=== PATIENT | female | born 1990 | race Caucasian/White ===

== ENCOUNTER → 2017-03-04 | Outpatient (CLI) | payer BC, OTHER ==
[2015-02-03 10:50] VITALS: BP 132/79
[~2017-03-04] MED LIST: CLIN300C8 PO; METH4TAB6 PO; OXYC-323 PO
--- NOTE | 2017-03-04 16:55 | KCIC ---
Pelvic ultrasound HISTORY: Left lower quadrant pain. Polycystic ovary disease. Transabdominal scan Poor visualization of uterus and adnexa. Transvaginal scan Left ovary measures 4.6 cm long [place] with small follicular cysts and positive vascularity. Complex nodule identified within the left ovary measuring 2 cm with hypervascularity. Uterus measures 5.9 cm long by 3.8 cm length by 4.1 cm transverse. Endometrial stripe measures 13 mm. Right ovary measures 4.1 cm with multiple follicular cysts and positive vascularity. No significant free pelvic fluid. IMPRESSION: 1. Small follicular cysts identified in both ovaries, could relate to the diagnosis of polycystic ovary disease. 2. Complex 2 cm vascular nodule within the left ovary could represent a hemorrhagic cyst. Recommend short-term ultrasound follow-up in 2-6 weeks. Electronically signed by: Min Almaraz MD (03/04/2017 4:51 PM)
== END | disposition home or self-care (01) ==
LOC: KCIC US 14:39
DX: R10.32 Left lower quadrant pain (principal)
CPT/HCPCS: 76830; 76856

== ENCOUNTER → 2017-05-02 | Outpatient (CLI) | payer OTHER ==
[2015-02-03 10:50] VITALS: BP 132/79
[~2017-05-02] MED LIST changes: +IOHEXOL 240 MG/ML 50ML VIAL. PO ONE
--- NOTE | 2017-05-02 13:11 | RAD ---
CT abdomen/pelvis Indication: Status post lap band removal. Evaluate stomach. Technique: CT abdomen/pelvis with 30 mL of Omnipaque 240 P.O contrast with multiplanar reformats. No IV contrast. Comparison: None Findings: Heart is normal in size. No pericardial or pleural effusion. Clear lung bases. Noncontrast appearance of the liver, spleen, the liver, pancreas, adrenals and kidneys is within normal limits. No retroperitoneal or pelvic adenopathy. No bowel obstruction. Stomach is opacified with enteric contrast. Small bowel loops are also opacified with enteric contrast and show no abnormality. Appendix is within normal limits. Uterus is present and is anteverted. Bilateral ovaries are seen. Bladder within normal limits. No suspicious bony lesions. Impression: No evidence of gastric outlet obstruction or small bowel obstruction. No hiatal hernia. PQRS Compliance Statement: One or more of the following individualized dose reduction techniques were utilized for this examination: 1. Automated exposure control 2. Adjustment of the mA and/or kV according to patient size 3. Use of iterative reconstruction technique
== END | disposition home or self-care (01) ==
LOC: CT 15:30
PROVIDERS: ATTEND Surgery
DX: L90.5 Scar conditions and fibrosis of skin (principal); Z98.84 Bariatric surgery status
CPT/HCPCS: 74176; Q9966

== ENCOUNTER → 2017-05-10 | Outpatient (CLI) | payer OTHER ==
[2015-02-03 10:50] VITALS: BP 132/79
[~2017-05-10] MED LIST changes: -IOHEXOL 240 MG/ML 50ML VIAL. PO ONE
[2017-05-10 11:29] LABS: BASO # 0.1 x10^3/uL (0.0-0.2); BASO % 1 % (0-3); EOS % 3 % (0-3); HEMATOCRIT 36.2 % (36.0-47.0); HEMOGLOBIN 12.1 g/dL (12.0-15.5); LYMPH # 3.4 x10^3/uL (1.0-4.8); LYMPH % 38 % (24-48); MEAN CORPUSCULAR HEMOGLOBIN 29 pg (25-35); MEAN CORPUSCULAR HGB CONC 33 g/dL (31-37); MEAN CORPUSCULAR VOLUME 86 fL (79-100); MONO % 5 % (0-9); NEUT % 54 % (31-73); PLATELET COUNT 297 x10^3/uL (140-400); RED BLOOD COUNT 4.19 x10^6/uL (3.50-5.40); RED CELL DISTRIBUTION WIDTH 13.8 % (11.5-14.5)
--- NOTE | 2017-05-10 11:34 | EKG ---
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
== END | disposition home or self-care (01) ==
LOC: LAB 11:02
PROVIDERS: ATTEND Surgery
DX: R94.31 Abnormal electrocardiogram [ECG] [EKG] (principal)
CPT/HCPCS: 36415; 85025; 93005

== ENCOUNTER → 2017-05-15 | Outpatient (CLI) | payer OTHER ==
[2015-02-03 10:50] VITALS: BP 132/79
--- NOTE | 2017-05-15 09:15 | EKG ---
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
== END | disposition home or self-care (01) ==
LOC: EKG 08:49
PROVIDERS: ATTEND Physician Assistant Medical
DX: Z01.818 Encounter for other preprocedural examination (principal)
CPT/HCPCS: 93005

== ENCOUNTER 2018-03-04 07:00 | Emergency (ER) | payer OTHER ==
[2018-03-04 07:21] LABS: URINE HCG POC HCG NEGATIVE (Negative)
[2018-03-04 07:32] LABS: ADD MAN DIFF? NO
[2018-03-04] MEDS: IV NORMAL SALINE 1000ML BAG 1,000 ML IV (07:39)
[2018-03-04 07:49] LABS: ANION GAP 8 (6-14); BLOOD UREA NITROGEN 16 mg/dL (7-20); CALCIUM 8.8 mg/dL (8.5-10.1); CARBON DIOXIDE 26 mmol/L (21-32); CHLORIDE 104 mmol/L (98-107); CREATININE 0.7 mg/dL (0.6-1.0); GFR 98.9; GLUCOSE 100 mg/dL (70-99); POTASSIUM 4.2 mmol/L (3.5-5.1); SODIUM 138 mmol/L (136-145)
[2018-03-04 07:53] LABS: BASO # 0.1 x10^3/uL (0.0-0.2); BASO % 1 % (0-3); EOS # 0.4 x10^3/uL (0.0-0.7); EOS % 5 % (0-3); HEMATOCRIT 37.4 % (36.0-47.0); HEMOGLOBIN 12.6 g/dL (12.0-15.5); LYMPH # 2.8 x10^3/uL (1.0-4.8); LYMPH % 34 % (24-48); MEAN CORPUSCULAR HEMOGLOBIN 29 pg (25-35); MEAN CORPUSCULAR HGB CONC 34 g/dL (31-37); MEAN CORPUSCULAR VOLUME 86 fL (79-100); MONO # 0.4 x10^3/uL (0.0-1.1); MONO % 5 % (0-9); NEUT # 4.5 x10^3uL (1.8-7.7); NEUT % 55 % (31-73); PLATELET COUNT 309 x10^3/uL (140-400); RED BLOOD COUNT 4.37 x10^6/uL (3.50-5.40); RED CELL DISTRIBUTION WIDTH 13.8 % (11.5-14.5); WHITE BLOOD COUNT 8.1 x10^3/uL (4.0-11.0)
[2018-03-04 08:00] LABS: TROPONINI < 0.017 ng/mL (0.000-0.055)
[2018-03-04 08:13] LABS: NEG OBC SER NEG; POS OBC SER POS; PREG TEST PT QUAL NEGATIVE (NEG)
[2018-03-04 08:19] LABS: THYROID STIM HORMONE (TSH) 2.675 uIU/mL (0.358-3.74)
== END 2018-03-04 09:29 | disposition home or self-care (01) ==
LOC: ER 07:00
DX: R55 Syncope and collapse (principal); Z88.1 Allergy status to other antibiotic agents; Z88.2 Allergy status to sulfonamides; Z88.8 Allergy status to other drugs, medicaments and biological substances
CPT/HCPCS: 36415; 80048; 81025; 83735; 84100; 84439; 84443; 84484; 84703; 85025; 93005; 96360; 99285-25; J7030

== ENCOUNTER → 2018-03-11 | Outpatient (CLI) | payer OTHER | END | disposition home or self-care (01) | LOC: EKG 12:45 | DX: R55 Syncope and collapse (principal) | CPT/HCPCS: 93660 ==

== ENCOUNTER → 2018-03-14 | Outpatient (CLI) | payer OTHER | END | disposition home or self-care (01) | LOC: ECHO 07:48 | DX: I36.1 Nonrheumatic tricuspid (valve) insufficiency (principal); R55 Syncope and collapse | CPT/HCPCS: 70450; 93306 ==

== ENCOUNTER → 2019-05-19 | Outpatient (CLI) | payer OTHER ==
[2018-03-04 09:00] VITALS: BP 129/75
[~2019-05-19] MED LIST changes: -OXYC-323 PO; +OXYC1TAB15 PO
[2019-05-19 11:36] LABS: BASO % 1 % (0-3); EOS # 0.1 x10^3/uL (0.0-0.7); EOS % 1 % (0-3); HEMATOCRIT 33.2 % (36.0-47.0); HEMOGLOBIN 11.1 g/dL (12.0-15.5); LYMPH # 2.7 x10^3/uL (1.0-4.8); LYMPH % 42 % (24-48); MEAN CORPUSCULAR HEMOGLOBIN 28 pg (25-35); MEAN CORPUSCULAR HGB CONC 33 g/dL (31-37); MEAN CORPUSCULAR VOLUME 84 fL (79-100); MONO # 0.3 x10^3/uL (0.0-1.1); MONO % 5 % (0-9); NEUT # 3.3 x10^3/uL (1.8-7.7); NEUT % 52 % (31-73); PLATELET COUNT 320 x10^3/uL (140-400); RED BLOOD COUNT 3.96 x10^6/uL (3.50-5.40); RED CELL DISTRIBUTION WIDTH 14.5 % (11.5-14.5); WHITE BLOOD COUNT 6.4 x10^3/uL (4.0-11.0)
[2019-05-19 12:15] LABS: ALBUMIN 3.3 g/dL (3.4-5.0); ALBUMIN/GLOBULIN RATIO 0.9 (1.0-1.7); CALCIUM 8.6 mg/dL (8.5-10.1); CHOLESTEROL/HDL RATIO 3.3; CREATININE 0.7 mg/dL (0.6-1.0); GFR 97.6; MAGNESIUM 1.8 mg/dL (1.8-2.4); POTASSIUM 4.1 mmol/L (3.5-5.1); TOTAL BILIRUBIN 0.4 mg/dL (0.2-1.0); TOTAL PROTEIN 6.9 g/dL (6.4-8.2)
[2019-05-20 01:07] LABS: HEMOGLOBIN A1C 5.5 % (4.8-5.6)
== END | disposition home or self-care (01) ==
LOC: LAB 11:03
PROVIDERS: ATTEND Family Medicine
DX: Z00.00 Encounter for general adult medical examination without abnormal findings (principal); Z98.890 Other specified postprocedural states
CPT/HCPCS: 36415; 80053; 80061; 82306; 82607; 82728; 83036; 83735; 84443; 85025

== ENCOUNTER 2019-08-05 11:06 | Emergency (ER) | payer OTHER ==
[~2019-08-05] VITALS: Ht 162.6 cm; Wt 105.2 kg
[2019-08-05 11:15] VITALS: BP 146/97
[2019-08-05] MEDS ORDERED: HYDROcodone/APAP 5/325MG 1 TAB TABLET PO ONE (11:30)
--- NOTE | 2019-08-05 12:29 | RAD ---
Study: FOOT LEFT 3V Indication: Fourth toe pain. Trauma. Comparison: None. Findings: Obliquely oriented, mildly comminuted and displaced fracture through the base of the fourth toe proximal phalanx which exhibits intra-articular extension into the MTP joint. This is best appreciated on the small field of view radiograph centered on the distal forefoot. Plantar angulation across the fracture site as well as lateral deviation of the distal aspect of the toe relative to the base of the proximal phalanx. No acute fracture seen elsewhere. Achilles insertion enthesophyte and a plantar calcaneal spur. Impression: Mildly comminuted and displaced, intra-articular fracture at the base of the fourth toe proximal phalanx extending into the MTP joint. Lateral subluxation of the distal aspect of the fourth toe relative to the base of the proximal phalanx as well as plantar angulation across the fracture site. Electronically signed by: EDGARD DAVIES MD (08/05/2019 12:26 PM) [facility]
--- NOTE | 2019-08-05 12:43 | PHYS DOC ---
Past Medical History Past Medical History: Endometriosis Additional Past Medical Histor: Hx Syncope, PCOS, ADD (VIRGIE MORFIN APRN) Past Surgical History: Other Additional Past Surgical Histo: Gastric sleeve, lap band (VIRGIE MORFIN APRN) Alcohol Use: Occasionally Drug Use: None (VIRGIE MORFIN APRN) Adult General Chief Complaint Chief Complaint: FOOT INJURY PAIN HPI HPI Patient is a 29 year old male who presents to the emergency department with complaints of left fourth toe pain and deformity after tripping over her dog this morning. Patient reports that when she tripped over her dog her foot became wedged into one of the steps on her deck. Patient currently rates her pain a 8 out of 10 on the pain scale, the pain increases with weightbearing and movement. She denies any alleviating factors. Pt denies any numbness or tingling of her left foot. She denies any left ankle pain or pain in her foot. All other ROS is neg unless otherwise noted in HPI. (VIRGIE MORFIN APRN) Review of Systems Review of Systems See Above (VIRGIE MORFIN APRN) Current Medications Current Medications Current Medications Medications (Trade) Dose Ordered Sig/Domenico Start Time Stop Time Status Last Admin Dose Admin Acetaminophen/ Hydrocodone Bitart (Lortab 5/325) 1 tab 1X ONCE 08/05/19 11:30 08/05/19 11:31 DC 08/05/19 11:33 1 TAB (HEATHER POWERS MD) Allergies Allergies Allergies Coded Allergies Type Severity Reaction Last Updated Verified Sulfa (Sulfonamide Antibiotics) Allergy Intermediate Rash 08/05/19 Yes amoxicillin Allergy Intermediate Rash 08/05/19 Yes nickel Allergy Intermediate Rash 08/05/19 Yes Uncoded Allergies Type Severity Reaction Last Updated Verified dermabond Allergy Intermediate rash 08/05/19 (HEATHER POWERS MD) Physical Exam Physical Exam See Above Constitutional: Well developed, well nourished, no acute distress, non-toxic appearance. [] HENT: Normocephalic, atraumatic, bilateral external ears normal, nose normal. [] Eyes: PERRLA, EOMI, conjunctiva normal, no discharge. [] Neck: Normal range of motion, no stridor. [] Cardiovascular:Heart rate regular rhythm Lungs & Thorax: Respirations even and unlabored, no retractions, no respiratory distress Skin: Warm, dry, no erythema, no rash. [] Extremities: No cyanosis, no clubbing, no edema; L 4th toe deformity with tenderness to palpation. Neurologic: Alert and oriented X 3, no focal deficits noted. [] Psychologic: Affect normal, judgement normal, mood normal. [] (VIRGIE MORFIN APRN) Current Patient Data Vital Signs Vital Signs Date Time Temp Pulse Resp B/P (MAP) Pulse Ox O2 Delivery O2 Flow Rate FiO2 08/05/19 11:33 18 97 Room Air 08/05/19 11:15 98.9 84 146/97 (113) 98.9 (HEATHER POWERS MD) EKG EKG [] (VIRGIE MORFIN APRN) Radiology/Procedures Radiology/Procedures PROCEDURE: FOOT LEFT 3V Study: FOOT LEFT 3V Indication: Fourth toe pain. Trauma. Comparison: None. Findings: Obliquely oriented, mildly comminuted and displaced fracture through the base of the fourth toe proximal phalanx which exhibits intra-articular extension into the MTP joint. This is best appreciated on the small field of view radiograph centered on the distal forefoot. Plantar angulation across the fracture site as well as lateral deviation of the distal aspect of the toe relative to the base of the proximal phalanx. No acute fracture seen elsewhere. Achilles insertion enthesophyte and a plantar calcaneal spur. Impression: Mildly comminuted and displaced, intra-articular fracture at the base of the fourth toe proximal phalanx extending into the MTP joint. Lateral subluxation of the distal aspect of the fourth toe relative to the base of the proximal phalanx as well as plantar angulation across the fracture site. [] (VIRGIE MORFIN APRN) Course & Med Decision Making Course & Med Decision Making Pertinent Labs and Imaging studies reviewed. (See chart for details) 1214- Spoke with Dr. Leslie advised of fracture dislocation. Per Dr. Leslie reduce fracture then bing taped the third fourth and fifth left toes together and place patient in a postop shoe. Outpatient follow-up in his office next week. 1232- Dr. Powers and myself at bedside to reduce fracture, 3rd-5th toes on left foot bing taped with cotton balls placed between toes. [] (VIRGIE MORFIN APRN) Dragon Disclaimer Dragon Disclaimer This electronic medical record was generated, in whole or in part, using a voice recognition dictation system. (VIRGIE MORFIN APRN) Departure Departure Impression: Primary Impression: Fracture of fourth toe, left, closed Disposition: 01 HOME, SELF-CARE Condition: STABLE Referrals: NIDIA MELTON (PCP) KYE LESLIE II, MD Patient Instructions: Bing Taping of Toes, Toe Fracture, [id number] Additional Instructions: Fill prescription and take as directed for pain. Bing tape your toes and wear the post-op shoe provided. Follow up with Dr. Leslie next week, return to the ER if your symptoms worsen. Scripts Hydrocodone Bit/Acetaminophen (HYDROCODONE-APAP 5-325 ) 1 Tab Tablet 1 TAB PO PRN Q6HRS PRN for PAIN for 5 Days, #20 TAB 0 Refills Prov: VIRGIE MORFIN APRN 08/05/19 PROCEDURE Procedure Procedure note: We reapproximated the patient's fourth left toe fracture was reduced to a more anatomic position. Verbal consent was given. Normal neurovascular status before and after the procedure with 2 second cap refill. X- rays taken after the procedure. (HEATHER POWERS MD) Problem Qualifiers Primary Impression: Fracture of fourth toe, left, closed Encounter type: initial encounter Qualified Codes: S92.502A - Displaced unspecified fracture of left lesser toe(s), initial encounter for closed fracture VIRGIE MORFIN APRN Aug 05, 2019 12:43 HEATHER POWERS MD Aug 05, 2019 12:47
--- NOTE | 2019-08-05 13:04 | RAD ---
TOES LEFT History: Fourth toe post reduction Comparison: Exam earlier the same day Findings: 3 views of the left foot with attention to the fourth digit are submitted. There is somewhat oblique displaced fracture of the proximal aspect of the fourth proximal phalanx, distal fragment displaced by about one quarter shaft width in volar direction. Fracture plane likely extends to the articular surface. There is fusion of the fifth distal interphalangeal joint. Impression: 1. There is again displaced intra-articular fracture of the fourth proximal phalanx. Electronically signed by: Sorin Eli MD (08/05/2019 1:01 PM) [facility]
[2019-08-05] MEDS ORDERED: HYDR-2761 PO (13:18)
== END 2019-08-05 13:33 | disposition home or self-care (01) ==
LOC: ER 11:06
DX: S92.502A Displaced unspecified fracture of left lesser toe(s), initial encounter for closed fracture (principal); N80.9 Endometriosis, unspecified; E28.2 Polycystic ovarian syndrome; F98.8 Other specified behavioral and emotional disorders with onset usually occurring in childhood and adolescence; Z88.2 Allergy status to sulfonamides; Z88.1 Allergy status to other antibiotic agents; L23.0 Allergic contact dermatitis due to metals; W01.0XXA Fall on same level from slipping, tripping and stumbling without subsequent striking against object, initial encounter; Y93.89 Activity, other specified; Y92.89 Other specified places as the place of occurrence of the external cause; Y99.8 Other external cause status
CPT/HCPCS: 73630; 73660; 99284

== ENCOUNTER 2019-10-26 11:39 | Emergency (ER) | payer OTHER ==
[~2019-10-26] VITALS: Ht 162.6 cm; Wt 110.0 kg
[~2019-10-26 11:39] MED LIST changes: +HYDR-2761 PO
[2019-10-26 12:23] VITALS: BP 153/85
[2019-10-26] MEDS ORDERED: CYCL10TA2 PO (12:37)
[2019-10-26] MEDS ORDERED: NAPR-695 PO (12:37)
--- NOTE | 2019-10-26 12:37 | PHYS DOC ---
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 Patient states she was turning a patient weighing more than 400 pounds when the pain began. Patient reports pain being worse on range of motion especially raising her arms above her shoulders. Patient denies anything specifically relie ving her pain. (EFREN ERVIN APRN) Review of Systems Review of Systems Constitutional: Denies fever or chills [] Eyes: Denies change in visual acuity, redness, or eye pain [] HENT: Denies nasal congestion or sore throat [] Respiratory: Denies cough or shortness of breath [] Cardiovascular: No additional information not addressed in HPI [] GI: Denies abdominal pain, nausea, vomiting, bloody stools or diarrhea [] : Denies dysuria or hematuria [] Musculoskeletal: Reports upper back/mid back pain Integument: Denies rash or skin lesions [] Neurologic: Denies headache, focal weakness or sensory changes [] All other systems were reviewed and found to be within normal limits, except as documented in this note. (EFREN ERVIN APRN) Allergies Allergies Allergies Coded Allergies Type Severity Reaction Last Updated Verified Sulfa (Sulfonamide Antibiotics) Allergy Intermediate Rash 08/05/19 Yes amoxicillin Allergy Intermediate Rash 08/05/19 Yes nickel Allergy Intermediate Rash 08/05/19 Yes Uncoded Allergies Type Severity Reaction Last Updated Verified dermabond Allergy Intermediate rash 08/05/19 (WILLIE COELLO DO) Physical Exam Physical Exam Constitutional: Well developed, well nourished, no acute distress, non-toxic appearance. [] HENT: Normocephalic, atraumatic, bilateral external ears normal, oropharynx moist, no oral exudates, nose normal. [] Eyes: PERRLA, EOMI, conjunctiva normal, no discharge. [] Neck: Normal range of motion, no tenderness, supple, no stridor. [] Cardiovascular:Heart rate regular rhythm, no murmur [] Lungs & Thorax: Bilateral breath sounds clear to auscultation [] Abdomen: Bowel sounds normal, soft, no tenderness, no masses, no pulsatile masses. [] Skin: Warm, dry, no erythema, no rash. [] Back: No tenderness, no CVA tenderness. [] Extremities: No tenderness, no cyanosis, no clubbing, ROM intact, no edema. [] Neurologic: Alert and oriented X 3, normal motor function, normal sensory function, no focal deficits noted. [] Psychologic: Affect normal, judgement normal, mood normal. [] (EFREN ERVIN APRN) Current Patient Data Vital Signs Vital Signs Date Time Temp Pulse Resp B/P (MAP) Pulse Ox O2 Delivery O2 Flow Rate FiO2 10/26/19 12:23 98.4 60 16 153/85 (107) 97 Room Air 98.4 (COELLOWILLIE DO) EKG EKG [] (EFREN ERVIN APRN) Radiology/Procedures Radiology/Procedures [] (EFREN ERVIN APRN) Course & Med Decision Making Course & Med Decision Making Pertinent Labs and Imaging studies reviewed. (See chart for details) This is a 29-year-old female patient presenting to the ED today with upper back muscle strain see history of present illness. Discharged to home. Follow-up with primary care doctor or work comp in 1-2 weeks (EFREN ERVIN APRN) Dragon Disclaimer Dragon Disclaimer This electronic medical record was generated, in whole or in part, using a voice recognition dictation system. (EFREN ERVIN APRN) Departure Departure Impression: Primary Impression: Strain of muscle at thorax level Additional Impression: Muscle strain of upper back Disposition: 01 HOME, SELF-CARE Condition: STABLE Referrals: DARLIN CHUNG DO (PCP) follow up with your own doctor in 1-2 weeks or work man comp doctor Patient Instructions: Muscle Strain, [id number] Additional Instructions: Please apply ice or heating pad to the affected areas. Follow up with your doctor or workman comp doctor in 1-2 weeks Scripts Naproxen (NAPROXEN) 375 Mg Tablet 1 TAB PO BID for pain for 30 Days, #60 TAB 0 Refills with food Prov: EFREN ERVIN KESHAWN 10/26/19 Cyclobenzaprine Hcl (CYCLOBENZAPRINE HCL) 10 Mg Tablet 1 TAB PO TID, #30 TAB Prov: EFREN ERVIN KESHAWN 10/26/19 Attending Signature Attending Signature I have reviewed the PA/GARDENING SUPERVISOR's note and plan of care. I was available for consultation as needed during the patient's visit in the emergency department. I agree with the clinical impression, plan, and disposition. (WILLIE COELLO DO) Problem Qualifiers KULDEEPJessicaEFREN APRN Oct 26, 2019 12:37 WILLIE COELLO DO Oct 26, 2019 15:31
== END 2019-10-26 12:45 | disposition home or self-care (01) ==
LOC: ER 11:39
DX: S29.012A Strain of muscle and tendon of back wall of thorax, initial encounter (principal); Z88.1 Allergy status to other antibiotic agents; Z88.2 Allergy status to sulfonamides; Z88.8 Allergy status to other drugs, medicaments and biological substances; X50.0XXA Overexertion from strenuous movement or load, initial encounter; Y93.89 Activity, other specified; Y92.89 Other specified places as the place of occurrence of the external cause; Y99.8 Other external cause status
CPT/HCPCS: 99283

== ENCOUNTER → 2021-08-28 | Outpatient (CLI) | payer OTHER ==
[~2021-08-28] MED LIST changes: +CLIN-94 PO; -CLIN300C8 PO; +CYCL10TA19 PO; +NAPR-695 PO
== END ==
LOC: LAB 10:08
PROVIDERS: ATTEND Internal Medicine Pulmonary Disease
DX: R05.9 Cough, unspecified (principal); R51.9 Headache, unspecified; R09.81 Nasal congestion; Z20.822 Contact with and (suspected) exposure to COVID-19
CPT/HCPCS: U0003